=== PATIENT | male | born 1970 | race Caucasian/White ===

== ENCOUNTER 2017-03-03 07:49 | Emergency (ER) | payer OTHER ==
[~2017-03-03] VITALS: Ht 167.6 cm; Wt 90.7 kg
[2017-03-03 07:55] VITALS: BP 135/82
--- NOTE | 2017-03-03 07:57 | NUR ---
PT BIB [facility] AMBULATES TO BED 5
--- NOTE | 2017-03-03 07:58 | NUR ---
PATIENT PRESENTS TO ED WITH DIFFICULTY SWALLOWING.USED THROAT SPRAY;DENIES N/V/D; SKIN IS PINK/WARM/DRY; AAOX4 WITH EVEN AND STEADY GAIT; LUNGS CLEAR BL; HR EVEN AND REGULAR; PT DENIES ANY FEVER, CP, SOB, OR COUGH AT THIS TIME; PATIENT STATES PAIN OF 7/10 AT THIS TIME; VSS; PATIENT POSITIONED FOR COMFORT; HOB ELEVATED; BEDRAILS UP X2; BED DOWN. ER MD MADE AWARE OF PT STATUS.
[2017-03-03] MEDS ORDERED: PENICILLIN G BENZATHINE C-R 1.2 MU/2 ML SYR IM ONE (08:15)
[2017-03-03] MEDS ORDERED: DEXAMETHASONE 10 MG/ML VIAL IM ONE (08:15)
[2017-03-03] MEDS ORDERED: KETOROLAC 60 MG/2 ML VIAL IM ONE (08:15)
--- NOTE | 2017-03-03 09:28 | NUR ---
PT RESTING COMFORTABLY ON BED ON MONITOR, MINIMAL PAIN 3/10, VSS, WILL CONTINUE TO MONITOR
[2017-03-03 10:10] VITALS: BP 114/67
== END 2017-03-03 10:10 | disposition home or self-care (01) ==
LOC: MED 07:50
DX: J03.90 Acute tonsillitis, unspecified (principal)
CPT/HCPCS: 96372; 99284; J0558; J1100; J1885

== ENCOUNTER 2018-01-15 15:31 | Emergency (ER) | payer OTHER ==
[~2018-01-15] VITALS: Ht 167.6 cm; Wt 72.6 kg
[2018-01-15 15:36] VITALS: BP 126/86
--- NOTE | 2018-01-15 17:08 | NUR ---
Patient ambulated to bed 4.
[2018-01-15 17:18] VITALS: BP 119/79
--- NOTE | 2018-01-15 17:18 | NUR ---
PT. CAME INTO THE ED W/ FAMILY MEMBER W/ C/O ARIADNA. LEG PAIN AND CRAMPING X 1 YEAR. PT. STATES " I HAVE BEEN HAVING THIS PAIN AND CRAMPING IN MY LEGS FOR ABOUT A YEAR, I DONT REALLY DRINK WATER I LIKE TO DRINK SODA MORE". 5/10 PAIN IN BILATERAL LEGS THAT IS NON RADIATING AND CLASSIFIED [place]. PT. IS AAOX4, RR EVEN AND UNLABORED. DENIES N/V/D. DENIES CP, DENIES SOB AT THIS TIME. PT. ADMITS TO METHAMPHETAMINE USE AND ADMITS TO HAVE SMOKED IT AN HOUR AGO. SMOKES 20 CIGARETTES A DAY. FAMILY MEMBER AT BEDSIDE. ER NOTIFIED.
--- NOTE | 2018-01-15 17:44 | NUR ---
PT. LEFT WITHOUT BEING SEEN BY DR. HERNANDEZ. ARTUR RAZA NOTIFIED.
== END 2018-01-15 17:44 | disposition left against medical advice (07) ==
LOC: MED 15:31
DX: M79.604 Pain in right leg (principal); M79.605 Pain in left leg; Z53.21 Procedure and treatment not carried out due to patient leaving prior to being seen by health care provider

== ENCOUNTER 2019-06-23 04:53 | Emergency (ER) | payer SELFPAY ==
[~2019-06-23] VITALS: Ht 167.6 cm; Wt 74.8 kg
[2019-06-23 04:58] VITALS: BP 132/77
[2019-06-23 05:27] VITALS: BP 132/77
== END 2019-06-23 05:28 | disposition home or self-care (01) ==
LOC: MED 04:53
DX: L03.115 Cellulitis of right lower limb (principal); F15.90 Other stimulant use, unspecified, uncomplicated; Z71.6 Tobacco abuse counseling
CPT/HCPCS: 99283